=== PATIENT | male | born 1980 | race Caucasian/White ===

== ENCOUNTER 2018-03-29 11:07 | Emergency (ER) | payer OTHER ==
[~2018-03-29] VITALS: Ht 188 cm; Wt 83.2 kg
[2018-03-29 11:15] VITALS: BP 116/68
[2018-03-29] MEDS ORDERED: ORPH100T2 PO (11:43)
[2018-03-29] MEDS ORDERED: IBUP-1984 PO (11:43)
[2018-03-29] MEDS ORDERED: HYDR-565 PO (11:43)
== END 2018-03-29 11:54 | disposition home or self-care (01) ==
LOC: ER 11:07
DX: S16.1XXA Strain of muscle, fascia and tendon at neck level, initial encounter (principal); S40.012A Contusion of left shoulder, initial encounter; F17.200 Nicotine dependence, unspecified, uncomplicated; Z88.1 Allergy status to other antibiotic agents; Z79.899 Other long term (current) drug therapy; V89.2XXA Person injured in unspecified motor-vehicle accident, traffic, initial encounter; Y93.89 Activity, other specified; Y92.89 Other specified places as the place of occurrence of the external cause; Y99.8 Other external cause status
CPT/HCPCS: 99283